=== PATIENT | female | born 1955 | race Asian ===

== ENCOUNTER 2016-09-21 19:00 | Observation (INO) | payer OTHER ==
[2016-09-21 19:18] VITALS: BMI 26.0
--- NOTE | 2016-09-21 19:38 | PDOC ---
History of Present Illness - General Chief Complaint: Wound Infection Stated Complaint: PCP SENT/ADMIT/INFECTED WOUND Time Seen by Provider: 09/21/16 19:30 History Source: Patient Exam Limitations: No Limitations - History of Present Illness Timing/Duration: reports: other Location: reports: other (right thumb) Respiratory Risk Factors: reports: no cause identified Past History - Travel Traveled outside of the country in the last 30 days: No Close contact w/someone who was outside of country & ill: No - Past Medical History Allergies/Adverse Reactions: Allergies Allergy/AdvReac Type Severity Reaction Status Date / Time aspirin Allergy Verified 09/21/16 19:11 Penicillins Allergy Verified 09/21/16 19:11 Home Medications: Ambulatory Orders Ibuprofen [Motrin -] 600 mg PO TID PRN #20 tablet 04/27/13 Rosuvastatin Calcium [Crestor] 5 mg PO Q2D 04/27/13 Acetaminophen [Tylenol .Regular Strength -] 650 mg PO Q4H PRN #0 tablet Clindamycin [Cleocin -] 300 mg PO Q6HPO #28 capsule 08/17/16 Docusate Sodium [Colace -] 100 mg PO DAILY capsule 08/17/16 Lactobacillus Acidophilus [Bacid -] 1 tab PO DAILY tab 08/17/16 Oxycodone HCl/Acetaminophen [Percocet 5-325 mg Tablet] 1 tab PO Q6H PRN #20 tablet MDD 4 08/17/16 Gabapentin 100 mg PO TID 09/21/16 Valacyclovir HCl [Valtrex] 1,000 mg PO TID 09/21/16 Anemia: No Asthma: No Cancer: No Cardiac Disorders: No CVA: No COPD: No CHF: No Dementia: No Diabetes: No GI Disorders: No Disorders: No HTN: No Hypercholesterolemia: Yes Liver Disease: No Seizures: No Thyroid Disease: No - Surgical History Abdominal Surgery: No Appendectomy: Yes Cardiac Surgery: No Cholecystectomy: No Lung Surgery: No Neurologic Surgery: No Orthopedic Surgery: No - Psycho/Social/Smoking Cessation Hx Anxiety: No Suicidal Ideation: No Smoking Status: No Smoking History: Never smoked Have you smoked in the past 12 months: No Number of Cigarettes Smoked Daily: 0 Information on smoking cessation initiated: No Hx Alcohol Use: No Drug/Substance Use Hx: No Substance Use Type: None Hx Substance Use Treatment: No Review of Systems - Review of Systems Able to Perform ROS?: Yes Comments:: 09/21/16 20:46 CONSTITUTIONAL: Absent: fever, chills, diaphoresis, generalized weakness, malaise, loss of appetite HEENT: Absent: rhinorrhea, nasal congestion, throat pain, throat swelling, difficulty swallowing, mouth swelling, ear pain, eye pain, visual Changes CARDIOVASCULAR: Absent: chest pain, loss of consciousness, palpitations, irregular heart rate, peripheral edema RESPIRATORY: Absent: cough, shortness of breath, dyspnea with exertion, orthopnea, wheezing, stridor, hemoptysis GASTROINTESTINAL: Absent: abdominal pain, abdominal distension, nausea, vomiting, diarrhea, constipation, melena, hematochezia GENITOURINARY: Absent: dysuria, frequency, urgency, hesitancy, hematuria, flank pain, genital pain MUSCULOSKELETAL: Absent: myalgia, arthralgia, joint swelling SKIN: +healing disseminated rash to right upper lat abd/follows dermatone Absent: itching, pallor HEMATOLOGIC/IMMUNOLOGIC: Absent: easy bleeding, easy bruising, lymphadenopathy, frequent infections ENDOCRINE: Absent: unexplained weight gain, unexplained weight loss, heat intolerance, cold intolerance NEUROLOGIC: Absent: headache, focal weakness or paresthesias, dizziness, unsteady gait, seizure, mental status changes, bladder or bowel incontinence PSYCHIATRIC: Absent: anxiety, depression, suicidal or homicidal ideation, hallucinations. Is the patient limited [place]ian proficient: No *Physical Exam - Vital Signs Last Vital Signs Temp Pulse Resp BP Pulse Ox 98.0 F 89 14 153/71 100 09/21/16 19:12 09/21/16 19:12 09/21/16 19:12 09/21/16 19:12 09/21/16 19:12 - Physical Exam Comments: 09/21/16 20:47 GENERAL: Well developed, well nourished. Awake and alert. No acute distress. HEENT: Normocephalic, atraumatic. PERRLA, EOMI. No conjunctival pallor. Sclera are non- icteric. Moist mucous membranes. Oropharynx is clear. NECK: Supple. Full ROM. No JVD. Carotid pulses 2+ and symmetric, without bruits. No thyromegaly. No lymphadenopathy. CARDIOVASCULAR: Regular rate and rhythm. No murmurs, rubs, or gallops. Distal pulses are 2+ and symmetric. PULMONARY: No evidence of respiratory distress. Lungs clear to auscultation bilaterally. No wheezing, rales or rhonchi. ABDOMINAL: Soft. Non-tender. Non-distended. No rebound or guarding. No organomegaly. Normoactive bowel sounds. MUSCULOSKELETAL Normal range of motion at all joints. No bony deformities or tenderness. No CVA tenderness. EXTREMITIES: No cyanosis. No clubbing. No edema. No calf tenderness. SKIN: Rash to lat upper abd; follows dermatone Warm and dry. Normal capillary refill. No jaundice. NEUROLOGICAL: Alert, awake, appropriate. Cranial nerves 2-12 intact. No deficits to light touch and temperature in face, upper extremities and lower extremities. No motor deficits in the in face, upper extremities and lower extremities. Normoreflexic in the upper and lower extremities. Normal speech. Toes are down- going bilaterally. Gait is normal without ataxia. PSYCHIATRIC: Cooperative. Good eye contact. Appropriate mood and affect. Heart Score/ECG Review - ECG Intrepretation Rhythm: Regular Rhythm Comment:: 09/21/16 21:08 NSR at 73; NO ST elevation - ECG Impressions Normal ECG: Yes Non-specific ST Elevation: Yes Ischemic Changes: No ED Treatment Course - LABORATORY CBC & Chemistry Diagram: 09/21/16 19:41 09/21/16 19:41 Progress Note - Progress Note Progress Note: 2014hrs; Called Dr. Darin Thurman [phone] 61-year-old female presents to the emergency department for admission due to right thumb osteomyelitis. Patient states back in July 2016, she noticed a superficial foreign body to the dorsal aspect of the right mid thumb. She removed the foreign body with a needle and applied bacitracin. She states her thumb completely healed but noticed redness and swelling on 08/16/2016. She was seen by her PMD and was admitted to [facility] [place]. Patient was admitted for cellulitis and given clindamycin and vancomycin. She admits to being discharged prior to her second dose of vancomycin. Patient was seen by her PMD approximately 2 weeks later and was referred to a hand surgeon/ Dr Amaro. She consulted with a hand surgeon 1 week ago and advised her to get an MRI of the right thumb. This evening, her PMD: Dr. Ximena Hernandez advised her to come to the emergency department for admission/right thumb osteomyelitis. *DC/Admit/Observation/Transfer Diagnosis at time of Disposition: Finger osteomyelitis, right Shingles Qualifiers: Herpes zoster complications: without complications Qualified Code(s): B02.9 - Zoster without complications - Discharge Dispostion Condition at time of disposition: Guarded Admit: Yes - Referrals Referrals: Ximena Hernandez [Primary Care Provider] -
[2016-09-21] MEDS ORDERED: SODIUM CHLORIDE 1,000 ML IV SCH (19:45)
--- NOTE | 2016-09-21 19:59 | PDOC ---
*Physical Exam - Vital Signs Last Vital Signs Temp Pulse Resp BP Pulse Ox 98.0 F 89 14 153/71 100 09/21/16 19:12 09/21/16 19:12 09/21/16 19:12 09/21/16 19:12 09/21/16 19:12 ED Treatment Course - LABORATORY CBC & Chemistry Diagram: 09/21/16 19:41 09/21/16 19:41 Medical Decision Making - Medical Decision Making 09/21/16 19:58 Pt seen by the Advanced Practice Provider under my direct supervision Ancillary studies reviewed I agree with plan as outlined by the Advanced Practice Provider ORIANA Ames *DC/Admit/Observation/Transfer Diagnosis at time of Disposition: Finger osteomyelitis, right, Shingles - Discharge Dispostion Condition at time of disposition: Guarded
[2016-09-21 20:22] LABS: BASOPHIL 0.7 % (0-2.0); EOSINOPHIL 6.3 % (0-4.5); MCH 32.2 pg (25.7-33.7); MCHC 34.2 g/dl (32.0-36.0); MEAN CELL VOLUME 94.4 fl (80-96); MEAN PLT VOLUME 6.7 fl (7.5-11.1); NEUTROPHILS 39.6 % (42.8-82.8); PLATELET COUNT 247 K/MM3 (134-434); RDW 12.6 % (11.6-15.6); WHITE BLOOD COUNT 4.7 K/mm3 (4.0-10.0)
[2016-09-21] MEDS ORDERED: VANCOMYCIN 1,000 MG in DEXTROSE 5%-WATER - 250 ML IVPB ONE (20:23)
[2016-09-21] MEDS ORDERED: ACETAMINOPHEN 325 MG TABLET (FP) PO PRN (20:28)
[2016-09-21] MEDS ORDERED: ONDANSETRON *ODT* 4 MG TABLET SL PRN (20:29)
[2016-09-21] MEDS ORDERED: DOCUSATE SODIUM 100 MG CAPSULE (FP) PO PRN (20:29)
[2016-09-21] MEDS ORDERED: oxyCODONE HCL 5 MG TABLET PO PRN (20:29)
[2016-09-21 20:40] LABS: ALBUMIN 3.9 g/dl (3.4-5.0); ANION GAP 6 (8-16); BILIRUBIN,TOTAL 0.4 mg/dL (0.2-1.0); CALCIUM 8.6 mg/dL (8.5-10.1); CO2 30 mmol/L (21-32); CREATININE 0.8 mg/dL (0.55-1.02); GLUCOSE,RANDOM 120 mg/dL (74-106); SGOT/AST 51 U/L (15-37); SGPT/ALT 85 U/L (12-78); TOT PROT 7.8 g/dl (6.4-8.2)
[2016-09-21 20:41] LABS: ALK PHOS 169 U/L (45-117)
[2016-09-21 20:54] LABS: URINE APPEARANCE CLEAR; URINE BILIRUBIN NEGATIVE (NEGATIVE); URINE COLOR STRAW; URINE GLUCOSE (UA) NEGATIVE (NEGATIVE); URINE KETONE NEGATIVE (NEGATIVE); URINE LEUK ESTERASE NEGATIVE (NEGATIVE); URINE NITRITE NEGATIVE (NEGATIVE); URINE PROTEIN NEGATIVE (NEGATIVE); URINE UROBILINOGEN NEGATIVE E.U./dl (0.2-1.0)
[2016-09-21 20:55] LABS: URINE BLOOD 1+ (NEGATIVE)
[2016-09-21 21:06] LABS: URINE RBC 2 /hpf (0-3); URINE WBC <1 /hpf (3-5)
[2016-09-21] MEDS ORDERED: VANCOMYCIN 1 GRAM (PRE-DOCKED) 250 ML IVPB ONE (21:06)
[2016-09-21] MEDS ORDERED: ROSUVASTATIN CA 10 MG TABLET (FP) PO SCH (22:00)
[2016-09-21] MEDS: LEVOFLOXACIN 750 MG IVPB 150 ML IVPB SCH (23:10)
--- NOTE | 2016-09-22 08:30 | PN ---
Progress Note (short form) - Note Progress Note: ID Full noted dictated Paranychia thumb with what I think is a fungal infection DIP and nailbed Has not responded to Clindaymcin nor Levofloxacin and been chronic Also has shingles Advise No antibiotics and do not think she needs admission valtrex given Dermatology evaluation of nail bed scraping Problem List - Problems (1) Shingles Code(s): B02.9 - ZOSTER WITHOUT COMPLICATIONS Qualifiers: Herpes zoster complications: without complications Qualified Code(s): B02.9 - Zoster without complications (2) Paronychia Code(s): L03.019 - CELLULITIS OF UNSPECIFIED FINGER
--- NOTE | 2016-09-22 09:30 | HP ---
Admitting History and Physical - Primary Care Physician PCP: Darin Thurman - Admission Chief Complaint: right thumb infection/osteomyelitis History of Present Illness: 61 y/o female who has been treated as an outpatient for acute right thumb infection, outpatient bonescan ++ for osteomyelitis. iv abx given vanco and levaquin here. on observation status with iv abx and mri with ID consult ordered. History Source: Patient Limitations to Obtaining History: No Limitations - Smoking History Smoking history: Never smoked Have you smoked in the past 12 months: No Aproximately how many cigarettes per day: 0 - Alcohol/Substance Use Hx Alcohol Use: No Home Medications - Allergies Allergies/Adverse Reactions: Allergies Allergy/AdvReac Type Severity Reaction Status Date / Time aspirin Allergy Verified 09/21/16 19:11 Penicillins Allergy Verified 09/21/16 19:11 - Home Medications Home Medications: Ambulatory Orders Ibuprofen [Motrin -] 600 mg PO TID PRN #20 tablet 04/27/13 Rosuvastatin Calcium [Crestor] 5 mg PO Q2D 04/27/13 Acetaminophen [Tylenol .Regular Strength -] 650 mg PO Q4H PRN #0 tablet Clindamycin [Cleocin -] 300 mg PO Q6HPO #28 capsule 08/17/16 Docusate Sodium [Colace -] 100 mg PO DAILY capsule 08/17/16 Lactobacillus Acidophilus [Bacid -] 1 tab PO DAILY tab 08/17/16 Oxycodone HCl/Acetaminophen [Percocet 5-325 mg Tablet] 1 tab PO Q6H PRN #20 tablet MDD 4 08/17/16 Gabapentin 100 mg PO TID 09/21/16 Valacyclovir HCl [Valtrex] 1,000 mg PO TID 09/21/16 Review of Systems - Review of Systems Constitutional: reports: No Symptoms Eyes: reports: No Symptoms HENT: reports: No Symptoms Neck: reports: No Symptoms Cardiovascular: reports: No Symptoms Respiratory: reports: No Symptoms Gastrointestinal: reports: No Symptoms Musculoskeletal: reports: Extremity Pain, Joint Pain Integumentary: reports: Erythema Neurological: reports: No Symptoms Endocrine: reports: No Symptoms Hematology/Lymphatic: reports: No Symptoms Psychiatric: reports: No Symptoms Physical Examination Vital Signs: Vital Signs Temperature 98.0 F 09/21/16 19:12 Pulse Rate 89 09/21/16 19:12 Respiratory Rate 14 09/21/16 19:12 Blood Pressure 153/71 09/21/16 19:12 O2 Sat by Pulse Oximetry (%) 100 09/21/16 19:12 Constitutional: Yes: Well Nourished Eyes: Yes: WNL HENT: Yes: WNL Neck: Yes: WNL Cardiovascular: Yes: WNL Respiratory: Yes: WNL Gastrointestinal: Yes: WNL Renal/: Yes: WNL Musculoskeletal: Yes: Joint Swelling Extremities: Yes: Erythema (right thumb/edema) Edema: Yes Edema: RUE: 2+ Peripheral Pulses WNL: Yes Integumentary: Yes: Erythema, Other Wound/Incision: Yes: Open to air, Excoriated Neurological: Yes: WNL ...Motor Strength: WNL Psychiatric: Yes: WNL Problem List - Problems (1) Finger osteomyelitis, right Code(s): M86.9 - OSTEOMYELITIS, UNSPECIFIED (2) Cellulitis of thumb, right Code(s): L03.011 - CELLULITIS OF RIGHT FINGER Assessment/Plan observation status iv abx id consult outpatient mri derm consult
[2016-09-22 09:36] VITALS: BP 154/80; PULSE 77; TEMP 98.3
--- NOTE | 2016-09-22 09:36 | DS ---
Physical Examination Vital Signs: Vital Signs Temperature 98.0 F 09/21/16 19:12 Pulse Rate 89 09/21/16 19:12 Respiratory Rate 14 09/21/16 19:12 Blood Pressure 153/71 09/21/16 19:12 O2 Sat by Pulse Oximetry (%) 100 09/21/16 19:12 Findings/Remarks: SEE HISTORY AND PHYSICAL Discharge Summary Reason For Visit: FINGER OSTEOMYELITIS RIGHT/SHINGLES Current Active Problems Finger osteomyelitis, right (Acute) Paronychia (Acute) Shingles (Acute) Procedures: Principal: LABS AND CULTURES Hospital Course: IV VANCO AND LEVAQUIN GIVEN, IMPROVED, WILL DC HOME F/U MRI OUTPATIENT DERMATOLOGY CONSULT Condition: Guarded - Instructions Diet, Activity, Other Instructions: REG Referrals: Ximena Hernandez [Primary Care Provider] - Disposition: HOME - Home Medications Comprehensive Discharge Medication List: Ambulatory Orders Ibuprofen [Motrin -] 600 mg PO TID PRN #20 tablet 04/27/13 Rosuvastatin Calcium [Crestor] 5 mg PO Q2D 04/27/13 Acetaminophen [Tylenol .Regular Strength -] 650 mg PO Q4H PRN #0 tablet Clindamycin [Cleocin -] 300 mg PO Q6HPO #28 capsule 08/17/16 Docusate Sodium [Colace -] 100 mg PO DAILY capsule 08/17/16 Lactobacillus Acidophilus [Bacid -] 1 tab PO DAILY tab 08/17/16 Oxycodone HCl/Acetaminophen [Percocet 5-325 mg Tablet] 1 tab PO Q6H PRN #20 tablet MDD 4 08/17/16 Gabapentin 100 mg PO TID 09/21/16 Valacyclovir HCl [Valtrex] 1,000 mg PO TID 09/21/16
[2016-09-22] MEDS: LEVOFLOXACIN 750 MG IVPB 150 ML IVPB SCH (09:38)
[2016-09-22] MEDS ORDERED: LACTOBACILLUS ACIDOPHILUS 1 EACH TAB (FP) PO SCH (10:00)
--- NOTE | 2016-09-22 10:21 | CONS ---
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 She notes this started sometime around [place], and apparently had been admitted to [facility] with a diagnosis of cellulitis on or about August 16. A progress note by Dr. Ramirez dated August 17 indicates that he felt this was a cellulitis. The patient denied previous history of trauma. However, according to the admitting notes on August 16, she says there may have been a pimple there, which she attempted to drain herself with a needle. The patient was treated with outpatient antibiotics by her primary medical doctor with clindamycin for a week and then more recently with Levaquin. She does not seem to have any improvement of the swelling, and though it has not improved, it has not gotten better now over the course of 4 weeks. She denies any systemic complaints, unusual exposures on her hands. She has no pets, does not work with any plants or gardening, and lives at home with her family. She has no other history of skin abscesses and has no recent travel history. PAST MEDICAL HISTORY: Positive for hyperlipidemia. CURRENT MEDICATIONS: Include Levaquin and vancomycin given here in the emergency room. ALLERGIES: To PENICILLIN with a mild rash many years ago. SOCIAL HISTORY: Working at [employer]. A nonsmoker. No history of alcohol use. She is . FAMILY HISTORY: Reviewed and noncontributory. REVIEW OF SYSTEMS: All systems reviewed and noncontributory. PHYSICAL EXAMINATION: General: She was an alert female in no acute distress. Vital signs: Temperature 98, pulse 89, blood pressure 153/71, respirations 24. Neck: Supple without adenopathy. Lungs: Clear to percussion and auscultation. Heart: S1, S2, regular rhythm without murmur. Extremities: Revealed swelling of the DIP joint of the thumb on the right hand, which was reddened, but soft without fluctuance. What appeared to be a small pustule was evident at the base of the nailbed, and the nailbed appeared infected with probable fungal infection. The white count was 4.7 with a hemoglobin of 12.5 and platelets of 247. BUN 12, creatinine 0.8, glucose of 120. ASSESSMENT: A 61-year-old [place] female presents with chronic swelling of the distal thumb. No obvious fluctuance present. This has not responded to clindamycin nor levofloxacin. There is a history that she may have tried to pop what she describes as a pimple, and while I can see the pimple at this time, it does not appear to have any obvious pus for culture. The nailbed looks infected with what I suspect is fungal infection, and the entire swelling and redness, which is now chronic over a month, could all be fungal in etiology. She is not acutely ill. At this point, I would recommend observing her off of antibiotics completely, sending her home with treatment for the shingles on her right abdominal wall with Valtrex 1 g t.i.d. for a total duration of 7-10 days. An MRI was apparently ordered by Dr. Ramirez, which was supposed to be done today. I would have her follow up with a meals on wheels driver and with consideration of scraping of the nailbed with possible antifungal therapy, check the MRI, continue the Valtrex as previously mentioned, and observe the infection off of antibiotics with outpatient followup in my office. Lastly, as I mentioned, herpes simplex infection presenting as a herpetic jimy considered, but this has been chronic, and she is now on Valtrex without any improvement of the finger, making herpetic infection less likely. MANUELA CUELLO M.D. [id number]
[2016-09-22] MEDS ORDERED: VANCOMYCIN 1 GRAM (PRE-DOCKED) 250 ML IVPB SCH (21:00)
--- NOTE | 2016-09-23 23:45 | EKG ---
Test Reason : Blood Pressure : / mmHG Vent. Rate : 073 BPM Atrial Rate : 073 BPM P-R Int : 178 ms QRS Dur : 082 ms QT Int : 406 ms P-R-T Axes : 047 -21 015 degrees QTc Int : 447 ms NORMAL SINUS RHYTHM NORMAL ECG NO PREVIOUS ECGS AVAILABLE Confirmed by JOSEPH DUBOIS MD ([id number]) on 09/23/2016 11:44:45 PM Referred By: Confirmed By:JOSEPH DUBOIS MD
== END 2016-09-22 09:37 | disposition home or self-care (01) ==
LOC: JER 19:00 → JERBED 20:25 → INTOOBSV 20:25
PROVIDERS: ADMIT Family Medicine; ATTEND Family Medicine
DX: L03.011 Cellulitis of right finger (principal); B02.9 Zoster without complications
CPT/HCPCS: 36415; 71020-TC; 80053; 81003; 81015; 85025; 86140; 87040; 93005; 93010; 99281-25; G0378